=== PATIENT | female | born 1990 | race African-American/Black ===

== ENCOUNTER 2022-01-26 13:04 | Emergency (ER) | payer BC, OTHER | END 2022-01-26 14:50 | disposition home or self-care (01) | LOC: CSHERS 13:04 | DX: S29.012A Strain of muscle and tendon of back wall of thorax, initial encounter (principal); F41.0 Panic disorder [episodic paroxysmal anxiety]; V49.9XXA Car occupant (driver) (passenger) injured in unspecified traffic accident, initial encounter | CPT/HCPCS: 72072 ==

== ENCOUNTER 2022-06-16 14:21 | Emergency (ER) | payer SELFPAY ==
[2022-06-16 16:07] LABS: #Monocytes 0.5 10x3/uL (0.0-1.1); #Neutrophils 4.7 10x3/uL (1.5-8.4); %Basophils 0.5 % (0.0-2.0); %Eosinophils 0.3 % (0.0-6.0); %Lymphocytes 32.8 % (18.0-47.0); %Monocytes 6.9 % (0.0-10.0); %Neutrophils 59.2 % (40.0-75.0); Hemoglobin 14.2 g/dL (12.0-15.5); Mean Corpuscular HGB CONC 34.5 g/dL (32.0-36.0); Mean Corpuscular Hemoglobin 29.9 pg (27.0-33.0); Mean Corpuscular Volume 86.7 fl (81.6-98.3); Mean Platelet Volume 9.8 fl (7.4-10.4); Platelet Count 337 10x3/uL (150-450); RBC Distribution Width 12.8 % (11.5-14.5); Red Blood Cell (RBC) Count 4.75 10x6/uL (3.90-5.03); White Blood Cell (WBC) Count 7.9 10x3/uL (3.5-10.5)
[2022-06-16 16:26] LABS: ALT (SGPT) 21 U/L (8-55); AST (SGOT) 24 U/L (5-34); Albumin 4.3 g/dL (3.5-5.0); Alkaline Phosphatase 94 U/L (40-110); Anion Gap 13 mmol/L (10-20); BUN (Urea Nitrogen) 14 mg/dL (7.0-18.7); Bilirubin, Total 0.5 mg/dL (0.2-1.2); Calc. Creatinine Clearance 0 mL/min (70-130); Calcium 9.6 mg/dL (7.8-10.44); Carbon Dioxide 23 mmol/L (22-29); Chloride 106 mmol/L (98-107); Estimated GFR 117; Globulin 3.7 g/dL (2.4-3.5); Glucose 86 mg/dL (70-105); Potassium 4.2 mmol/L (3.5-5.1); Sodium 138 mmol/L (136-145)
== END 2022-06-16 16:48 | disposition home or self-care (01) ==
LOC: CSHERS 14:21
DX: R07.89 Other chest pain (principal)
CPT/HCPCS: 71045; 80053; 84484; 85025; 93005

== ENCOUNTER 2023-04-28 14:45 | Emergency (ER) | payer SELFPAY ==
[2023-04-28] MEDS ORDERED: Acetaminophen 325 MG TAB ONE (15:31)
[2023-04-28 16:14] LABS: SARS-CoV-2 NAA Rapid Test Not Detected (NotDetected)
== END 2023-04-28 16:24 | disposition home or self-care (01) ==
LOC: CSHERS 14:45
DX: J20.9 Acute bronchitis, unspecified (principal); Z20.822 Contact with and (suspected) exposure to COVID-19
CPT/HCPCS: 99283